=== PATIENT | female | born 1950 | race Caucasian/White ===

== ENCOUNTER 2019-06-23 06:30 | Day surgery (SDC) | payer OTHER ==
[~2019-06-23 06:30] MED LIST: CALCIUM500 M2 PO; FOSAMAX70 MG PO; SYMBICORT 16010.2 GM IH; SYNTHROID75 MCG PO; ZANTAC150 M3 PO
== END 2019-06-23 17:10 | disposition home or self-care (01) ==
LOC: CIR.AMB 06:30
DX: D05.12 Intraductal carcinoma in situ of left breast (principal)